=== PATIENT | male | born 1965 | race Caucasian/White ===

== ENCOUNTER 2024-03-11 07:10 | Emergency (ER) | payer BC, SELFPAY ==
[2024-03-11 07:11] VITALS: BP 147/108
[2024-03-11 07:21] VITALS: BP 144/78
--- NOTE | 2024-03-11 07:35 | ED.GENMED ---
History of Present Illness
<Eddie Michaud PA-C - Last Filed: 03/11/24 12:17>
General
Chief Complaint: Heart Rate Problem
Source: patient
Time Seen by Provider: 03/11/24 07:22
History of Present Illness
History of Present Illness:
58-year-old male with no significant past medical history presenting to the emergency department for evaluation of palpitations that began this morning upon awakening around 6 AM. Patient states the palpitations continued which is what prompted him
to come to the ER today. He denies any chest pain, shortness of breath, exertional dyspnea, orthopnea, cough, hemoptysis or any other concerns. Patient thought that it might be related to working outside in the heat yesterday and he states he
should have been drinking water a little more than he should have. Denies any history of similar. Social history was noted for former smoker but quit over 20 years ago and he also denies any alcohol intake. Patient did note that he had 3 cups of
coffee yesterday which was a little bit more than usual for him as well.
Past History
<Eddie Michaud PA-C - Last Filed: 03/11/24 12:17>
Past History
ED Past Medical History: None
ED Past Surgical History: None
Social History
Tobacco: Former smoker
Alcohol: Occasional
Drug: None
Personal:
Living: with family
Employment: Employed
Family History
Family History: Negative Early CAD
Review of Systems
<Eddie Michaud PA-C - Last Filed: 03/11/24 12:17>
Review of Systems
All Other Systems: ROS reviewed and negative except as documented in HPI and ROS
Phy Exam
<Eddie Michaud PA-C - Last Filed: 03/11/24 12:17>
Physical Exam
Physical Exam:
GENERAL: Alert , in no apparent distress
EYE: Clear conjunctiva
NECK: Supple
ENT: o/p clr, mmm.
CARDIAC: Irregularly irregular, tachycardic, heart rate between 85 and 120 beats per
LUNGS: Clear breath sounds bilaterally, no acute respiratory distress
NEUROLOGICAL: Alert and oriented
SKIN: Warm and dry, skin intact.
MUSCULOSKELETAL: No edema, well perfused.
PSYCH: Normal and appropriate interaction.
Scores
<Eddie Michaud PA-C - Last Filed: 03/11/24 12:17>
[id number] Score for Afib Stroke Risk
Age in Years (65=0, 65-74=1, >/=75=2): <65
Sex (Female=+1): Male
Congestive Heart Failure History (Yes=+1): No
Hypertension History (Yes=+1): No
Stroke/TIA/Thromboembolism History (Yes=+2): No
Vascular Disease History (Yes=+1): No
Diabetes Mellitus (Yes=+1): No
Score: 0
Anticoagulation Recommendations: Anticoagulation not indicated (as validated in nonvalvular afib). Consider anticoagulation irrespective of score in patients with HCM
Heart Failure Risk
Heart Failure Risk Score: Not Applicable
Heart Score for Chest Pain Patients
STEMI patient?: Not applicable
Withdrawal Assessment of Alcohol
Withdrawal Assessment Completed?: Not applicable
<Breezy Bundy MD - Last Filed: 03/11/24 09:10>
[id number] Score for Afib Stroke Risk
Score: 0
Anticoagulation Recommendations: Anticoagulation not indicated (as validated in nonvalvular afib). Consider anticoagulation irrespective of score in patients with HCM
Course
<Eddie Michaud PA-C - Last Filed: 03/11/24 12:17>
Orders/Labs/Results
Orders:
Orders
03/11/24 07:11
Electrocardiogram (*1) Urgent
Reason for Study: Atrial Fibrillation
EKG- Treatment ONCE
03/11/24 07:32
Diltiazem HCl [Cardizem] 10 mg IV NOW STA
Diltiazem Sustained Release [Cardizem Sr] 120 mg PO NOW STA
03/11/24 07:39
Basic Metabolic Panel Urgent
Complete Blood Count/With Diff Urgent
TSH Urgent
03/11/24 07:56
Diltiazem Extended Release [Cardizem Cd] 120 mg PO NOW STA
Abnormal Lab Results
03/11/24
07:39
MCH 31.5 H pg
(27.0-31.0)
MPV 10.5 H fL
(7.4-10.4)
Chloride 108 H mmol/L
(98-107)
BUN 22 H mg/dl
(9-20)
Glucose 107 H mg/dl
(70-99)
03/11/24 07:39
03/11/24 07:39
Vital Signs
Initial and Last Documented VS:
Initial Vital Signs
Temp Pulse Resp BP Pulse Ox
98.4 F 90 18 147/108 99
03/11/24 07:11 03/11/24 07:11 03/11/24 07:11 03/11/24 07:11 03/11/24 07:11
Last Documented Vital Signs
Temp Pulse Resp BP Pulse Ox
98.4 F 81 19 125/88 97
03/11/24 07:11 03/11/24 08:45 03/11/24 08:45 03/11/24 08:00 03/11/24 08:45
Chief Green Officer consulted with Physician
Chief Green Officer consulted with physician?: Yes
Name of Physician Consulted: Gregor
<Breezy Bundy MD - Last Filed: 03/11/24 09:10>
Orders/Labs/Results
Orders:
Orders
03/11/24 07:11
Electrocardiogram (*1) Urgent
Reason for Study: Atrial Fibrillation
EKG- Treatment ONCE
03/11/24 07:32
Diltiazem HCl [Cardizem] 10 mg IV NOW STA
Diltiazem Sustained Release [Cardizem Sr] 120 mg PO NOW STA
03/11/24 07:39
Basic Metabolic Panel Urgent
Complete Blood Count/With Diff Urgent
TSH Urgent
03/11/24 07:56
Diltiazem Extended Release [Cardizem Cd] 120 mg PO NOW STA
Abnormal Lab Results
03/11/24
07:39
MCH 31.5 H pg
(27.0-31.0)
MPV 10.5 H fL
(7.4-10.4)
Chloride 108 H mmol/L
(98-107)
BUN 22 H mg/dl
(9-20)
Glucose 107 H mg/dl
(70-99)
03/11/24 07:39
03/11/24 07:39
Vital Signs
Initial and Last Documented VS:
Initial Vital Signs
Temp Pulse Resp BP Pulse Ox
98.4 F 90 18 147/108 99
03/11/24 07:11 03/11/24 07:11 03/11/24 07:11 03/11/24 07:11 03/11/24 07:11
Last Documented Vital Signs
Temp Pulse Resp BP Pulse Ox
98.4 F 81 19 125/88 97
03/11/24 07:11 03/11/24 08:45 03/11/24 08:45 03/11/24 08:00 03/11/24 08:45
<Eddie Michaud PA-C - Last Filed: 03/11/24 12:17>
MDM/Problems Addressed
Differential Diagnosis Includes:
Cardiac arrhythmia, ACS, valvular dysfunction, electrolyte disturbance
MDM/Problems Addressed:
58-year-old male presenting to the emergency department for evaluation of palpitations that began upon awakening this morning. Denies any history of similar. EKG on arrival shows patient is in atrial fibrillation. Telemetry confirms this as well.
Rate between 85 and 120 bpm. Patient is otherwise hemodynamically stable. Had discussion with patient about atrial fibrillation treatment including rate and rhythm control. In the meantime we will treat with a 10 mg bolus of Cardizem IV. Labs
ordered. Disposition pending.
<Eddie Michaud PA-C - Last Filed: 03/11/24 12:17>
*Pulse Oximetry
Patient hypoxic: no
*EKG
Interpreted by ED Provider?: Yes
Comparison EKG: changes noted
Heart Rate: 100
Rate: tachycardiac
Rhythm: a-fib
[place]: normal axis
Ischemia: no ischemia
*Wind Turbine Machinist Interpretation
Rate: tachycardiac
Rhythm: a-fib
*Critical Care Note
Total Time (30-74mins, 75-104mins- exclusive of procedures): Not Applicable
Data Reviewed
Review of Other/Old Records Reveals: Records and Testing
<Eddie Michaud PA-C - Last Filed: 03/11/24 12:17>
Patient Management
Discussion with other providers: [employer]
Escalation/DeEscalation of care consider admission/obs:
Case discussed with cardiology. At this time we will treat with p.o. medications as patient is rate controlled and asymptomatic. We will start him on Eliquis so as to if patient would require a cardioversion that this procedure would not be
delayed. Patient advised on precautions while being on blood thinners as well as return precautions to the ER. Prescription for 120 mg Cardizem CD sent to patient's pharmacy as well. Chest pain hotline was notified to help expedite follow-up.
Patient otherwise stable for discharge home.
ED Attending Note
<Eddie Michaud PA-C - Last Filed: 03/11/24 12:17>
-
Portions of this chart may have been created with voice recognition software.� Occasional wrong word or��sound alike� substitutions may have occurred due to the inherent limitations of voice recognition software.
<Breezy Bundy MD - Last Filed: 03/11/24 09:10>
ED Attending Note
Patient seen and examined by attending physician: Yes
I performed the substantive portion of visit, reviewed & personally made and approve the management plan that is documented in note by myself or KEVIN.: Yes
ED Attending Note:
58-year-old male heart palpitations this morning. No syncope no chest pain no shortness of breath.
On exam patient is nontoxic in no distress. Lungs are clear and equal. Heart mildly irregular but no murmur. Abdomen nontender warm and dry.
EKG shows a rate controlled atrial fibrillation. When confronted patient did not feel symptoms currently. Because of this uncertainty reluctant to cardiovert today. Discussed with cardiology. Low-dose rate control anticoagulation and cardiac
follow-up
Discharge Plan
Departure
Patient Disposition: Home (Routine Discharge)
Date of Disposition: 03/11/24
Time of Disposition: 08:55
Patient with high blood pressure during this ER visit?: Yes
Discharge Problem:
Atrial fibrillation
Instructions: Atrial Fibrillation (DC), Chest Pain DCA Follow Up
Prescriptions:
New
Eliquis 5 mg tablet
5 mg PO BID Qty: 60 0RF
diltiazem HCl [Cardizem LA] 120 mg tablet extended release 24 hr
120 mg PO DAILY Qty: 30 0RF
Referrals:
Breezy Mooney MD [Active] -
UNKNOWN - PT DOES,NOT KNOW [Family Provider] -
Interventions
Interventions:
*Risk Screen - Suicide Last Done: 03/11/24 07:11
*General Assessment Last Done: 03/11/24 07:11
*Neglect/Abuse Screening Last Done: 03/11/24 07:11
ED- Fall Risk Assessment Last Done: 03/11/24 07:55
*ED COVID-19 Vaccine History Last Done: 03/11/24 09:15
*Nursing Disposition Last Done: 03/11/24 09:15
ED- Cardiac Assessment Last Done: 03/11/24 07:55
ED- Pulmonary Assessment Last Done: 03/11/24 07:55
Discharge Date and Time
Discharge Date/Time: 03/11/24 09:17
Print Language: SLOVAK
[2024-03-11 08:00] VITALS: BP 125/88
[2024-03-11 08:03] LABS: % Basophils 0.5 % (0-2); % Eosinophils 5.6 % (0-6); % Immature Granulocytes 0.2 % (0-0.5); % Lymphocytes 26.4 % (20.5-51.1); % Monocytes 7.4 % (1.7-9.3); % Neutrophils 59.9 % (42.2-75.2); Absolute Eosinophils 0.4 10^3/uL (0-0.7); Absolute Lymphocytes 1.7 10^3/uL (1.2-3.4); Absolute Monocytes 0.5 10^3/uL (0.1-0.6); Hematocrit 44.8 % (39.0-52.0); Hemoglobin 15.9 g/dL (13.0-18.0); Mean Corp Hgb Conc. 35.5 g/dL (33.0-37.0); Mean Corpuscular Hgb 31.5 pg (27.0-31.0); Mean Corpuscular Volume 88.7 fL (80.0-94.0); Mean Platelet Volume 10.5 fL (7.4-10.4); Nucleated Red Blood Cells % 0 % (-); Platelet Count 200 10^3/uL (130-400); Red Blood Cell Count 5.05 10^6/uL (4.70-6.10); Red Cell Dist. Width 12.2 % (11.5-14.5); White Blood Cell Count 6.6 10^3/uL (4.8-10.8)
[2024-03-11] MEDS: CARDIZEM CD 120 MG PO (08:18)
[2024-03-11 08:22] LABS: Blood Urea Nitrogen 22 mg/dl (9-20); Calcium 9.6 mg/dl (8.4-10.2); Carbon Dioxide 24 mmol/L (22-30); Chloride 108 mmol/L (98-107); Glucose 107 mg/dl (70-99); Potassium 4.1 mmol/L (3.5-5.1); Sodium 140 mmol/L (135-145); eGFR > 60.00
[2024-03-11 09:06] LABS: TSH 1.19 uIU/ml (0.47-4.68)
== END 2024-03-11 09:17 | disposition home or self-care (01) ==
LOC: EMR 07:10
PROVIDERS: Physician Assistant Medical; EMERGENCY PHYSICIAN Emergency Medicine
DX: I48.91 Unspecified atrial fibrillation (principal); R03.0 Elevated blood-pressure reading, without diagnosis of hypertension; Z87.891 Personal history of nicotine dependence
CPT/HCPCS: 99283; 80048; 84443; 85025; 93005